=== PATIENT | male | born 1990 | race Caucasian/White ===

== ENCOUNTER → 2016-12-01 | Outpatient (REF) | payer BC | LOC: M SFHCPLAZ 16:56 | PROVIDERS: ATTEND Nurse Practitioner Family | DX: R30.0 Dysuria (principal) ==

== ENCOUNTER → 2017-07-08 | Outpatient (REF) | payer BC | LOC: M LAB REF 13:20 | PROVIDERS: ATTEND Physician Assistant Medical | DX: R19.7 Diarrhea, unspecified (principal) ==